=== PATIENT | male | born 1980 | race Two or more races ===

== ENCOUNTER 2016-11-05 06:58 | Emergency (ER) | payer OTHER ==
[~2016-11-05] VITALS: Ht 177.8 cm; Wt 90.0 kg
[2016-11-05 07:00] VITALS: BP 138/81; PULSE 68; RESP 16; TEMP 98.9; O2SAT 98
[2016-11-05] MEDS ORDERED: BUTA1CAP PO (07:38)
[2016-11-05] MEDS ORDERED: AUGM875T3 PO (07:38)
[2016-11-05] MEDS ORDERED: LEVO25TA4 PO (07:38)
[2016-11-05] MEDS ORDERED: ROBA750T PO (07:38)
[2016-11-05] MEDS ORDERED: PRED20 PO (07:38)
[2016-11-05] MEDS ORDERED: PRIL20TA2 PO (07:38)
[2016-11-05] MEDS ORDERED: ZOFR4TAB PO (07:38)
[2016-11-05] MEDS ORDERED: METF1000 PO (07:38)
[2016-11-05] MEDS ORDERED: SODIUM CHLOR 0.9% 1000 ML INJ 1,000 ML IV ONE (07:49)
[2016-11-05] MEDS ORDERED: PROCHLORPERAZINE INJ 10 MG/2 ML VIAL IVP ONE (08:00)
[2016-11-05] MEDS ORDERED: SODIUM CHLORIDE 0.9% FLUSH 10 ML FLUSH IVF PRN (08:00)
[2016-11-05] MEDS ORDERED: diphenhydrAMINE HCL 50 MG/ML VIAL IVP ONE (08:00)
[2016-11-05 08:14] LABS: BASOPHIL # 0.1 TH/MM3 (0-0.2); BASOPHIL % 0.5 % (0.0-2.0); EOSINOPHIL % 0.1 % (0.0-4.0); HEMATOCRIT 38.1 % (39.0-51.0); HEMO FLAGS DIFF FINAL; LYMPH % 18.3 % (9.0-44.0); LYMPHOCYTE # 2.4 TH/MM3 (1.0-4.8); MEAN CORPUSCULAR HEMOGLOBIN 26.7 PG (27.0-34.0); MEAN CORPUSCULAR HGB CONC 32.2 % (32.0-36.0); MONO % 5.6 % (0.0-8.0); NEUT % 75.5 % (16.0-70.0); PLATELET COUNT 222 TH/MM3 (150-450); RED BLOOD COUNT 4.59 MIL/MM3 (4.50-5.90); RED CELL DISTRIBUTION WIDTH 13.4 % (11.6-17.2); WHITE BLOOD COUNT 13.2 TH/MM3 (4.0-11.0)
--- NOTE | 2016-11-05 08:42 | PD ---
HPI Chief Complaint: Headache Time Seen by Provider: 07:33 Travel History International Travel<30 days: No Contact w/Intl Traveler<30days: No Traveled to known affect area: No History of Present Illness HPI The patient's 36. 3 days ago he woke up with a headache. He states that area pain involves the entire head however it's most severe in the bilateral retro- orbital distribution. He was seen in urgent care center following the onset of the pain and therefore received Benadryl, Reglan, IV fluids, Toradol and Decadron. He reports some benefit from the interventions. Evidently an MRI was performed which was normal and evidently also excluded meningitis. Patient reports no neck pain or stiffness. He reports looking from side to side is not painful. He's had no fever. He did vomit several times this morning. Urgent care facility diagnosed the headache as cluster headache. The patient denies similar prior episodes. Denies fever. PFSH Past Medical History Diabetes: Yes Patient Takes Glucophage: Yes Medical other: Yes (cluster headaches) Thyroid Disease: Yes (hypo) ?: Not Past Surgical History Surgical History: No Previous Surgery Social History Alcohol Use: Yes (3-4x monthly) Tobacco Use: No Substance Use: No Allergies-Medications (Allergen,Severity, Reaction): Coded Allergies: No Known Allergies (Unverified , 11/05/16) Reported Meds & Prescriptions Reported Meds & Active Scripts Active Oxycodone (Oxycodone HCl) 5 Mg Cap 5 Mg PO Q8H PRN Phenergan (Promethazine HCl) 25 Mg Tablet 25 Mg PO Q6H PRN Reported Prilosec (Omeprazole Magnesium) 20 Mg Tab 40 Mg PO DAILY Metformin (Metformin HCl) 1,000 Mg Tab Unknown Dose PO BIDPC With meals Levothyroxine (Levothyroxine Sodium) 25 Mcg Tab Unknown Dose PO DAILY Zofran (Ondansetron HCl) 4 Mg Tab 4 Mg PO Q12HR PRN Fioricet (Jnpzkdyfmj-Oghcgbfgtdaip-Bhcqgpzu) 50-300-40 Mg Cap 1 Cap PO TID PRN Augmentin (Amoxicillin-Clavulanate) 875-125 Mg Tab 1 Tab PO BID Robaxin (Methocarbamol) 750 Mg Tab 750 Mg PO Q8H Prednisone 20 Mg Tab 60 Mg PO DAILY Review of Systems Except as stated in HPI: all other systems reviewed are Neg General / Constitutional: No: Fever Neurologic: Positive: Headache, No: Weakness, Dizziness, Syncope, Focal Abnormalities, Coordination Problem, Tremor, Ataxia, Change in Mentation, Slurred Speech, Paresthesia, Incontinence, Seizures, Sensory Disturbance Physical Exam Narrative GENERAL: 36-year-old male well-nourished well-developed mild distress SKIN: Warm and dry. HEAD: Atraumatic. Normocephalic. EYES: Pupils equal and round. No scleral icterus. No injection or drainage. No nystagmus. EOMI with conjugate gaze. ENT: No nasal bleeding or discharge. Mucous membranes pink and moist. NECK: Neck flexion extension normal. Rotation normal. There is no spinal or paraspinal tenderness to palpation. CARDIOVASCULAR: Regular rate and rhythm. RESPIRATORY: No accessory muscle use. Clear to auscultation. Breath sounds equal bilaterally. GASTROINTESTINAL: Abdomen soft, non-tender, nondistended. Hepatic and splenic margins not palpable. MUSCULOSKELETAL: Extremities without clubbing, cyanosis, or edema. No obvious deformities. NEUROLOGICAL: Awake and alert. No obvious cranial nerve deficits. Motor grossly within normal limits. Five out of 5 muscle strength in the arms and legs. Normal speech. PSYCHIATRIC: Appropriate mood and affect; insight and judgment normal. Data Data Last Documented VS Vital Signs Date Time Temp Pulse Resp B/P (MAP) Pulse Ox O2 Delivery O2 Flow Rate FiO2 11/05/16 14:03 11/05/16 07:00 98.9 68 16 98 Room Air Vital signs reviewed blood pressure 136/81 Orders Orders Complete Blood Count With Diff (11/05/16 07:49) Basic Metabolic Panel (Bmp) (11/05/16 07:49) Ct Brain W/O Iv Contrast(Rout) (11/05/16 07:49) Ecg Monitoring (11/05/16 07:49) Iv Access Insert/Monitor (11/05/16 07:49) Oximetry (11/05/16 07:49) Sodium Chloride 0.9% Flush (Ns Flush) (11/05/16 08:00) Prochlorperazine Inj (Compazine Inj) (11/05/16 08:00) Diphenhydramine Inj (Benadryl Inj) (11/05/16 08:00) Sodium Chlor 0.9% 1000 Ml Inj (Ns 1000 M (11/05/16 07:49) Cta Brain W Iv Contrast W 3d (11/05/16 ) Iohexol 350 Inj (Omnipaque 350 Inj) (11/05/16 11:05) Hydromorphone Pf Inj (Dilaudid Pf Inj) (11/05/16 11:30) Labs Laboratory Tests Test 11/05/16 08:00 White Blood Count 13.2 TH/MM3 Red Blood Count 4.59 MIL/MM3 Hemoglobin 12.3 GM/DL Hematocrit 38.1 % Mean Corpuscular Volume 83.0 FL Mean Corpuscular Hemoglobin 26.7 PG Mean Corpuscular Hemoglobin Concent 32.2 % Red Cell Distribution Width 13.4 % Platelet Count 222 TH/MM3 Mean Platelet Volume 9.0 FL Neutrophils (%) (Auto) 75.5 % Lymphocytes (%) (Auto) 18.3 % Monocytes (%) (Auto) 5.6 % Eosinophils (%) (Auto) 0.1 % Basophils (%) (Auto) 0.5 % Neutrophils # (Auto) 10.0 TH/MM3 Lymphocytes # (Auto) 2.4 TH/MM3 Monocytes # (Auto) 0.7 TH/MM3 Eosinophils # (Auto) 0.0 TH/MM3 Basophils # (Auto) 0.1 TH/MM3 CBC Comment DIFF FINAL Differential Comment Blood Urea Nitrogen 16 MG/DL Creatinine 1.02 MG/DL Random Glucose 169 MG/DL Calcium Level 8.6 MG/DL Sodium Level 138 MEQ/L Potassium Level 4.1 MEQ/L Chloride Level 106 MEQ/L Carbon Dioxide Level 24.5 MEQ/L Anion Gap 8 MEQ/L Estimat Glomerular Filtration Rate 83 ML/MIN [facility] Medical Decision Making Medical Screen Exam Complete: Yes Emergency Medical Condition: Yes Medical Record Reviewed: Yes Differential Diagnosis Migraine, cluster headache, tension headache, aneurysm, intracranial thrombotic event, meningitis Narrative Course CBC & BMP Diagram 11/05/16 08:00 Calcium Level 8.6 Last [address] 11/05/16 0749 Signed Impressions: Service Date/Time: Saturday, November 05, 2016 10:54 - CONCLUSION: Unremarkable study except for slight sinusitis. Jaja Francis MD Head CTA 11/05/16 0000 Signed Impressions: Service Date/Time: Saturday, November 05, 2016 10:54 - CONCLUSION: Negative CTA. Exam is insensitive for aneurysm less than 2 mm and skull base aneurysms. Kaleb Link MD FACR Pain has been controlled. 0.5 mg hydromorphone gave the most benefit. The patient's explained that only "strong" medications work for the patient which in this scenario exclude butalbital, Robaxin and NSAIDs. Most certainly ethmoid sinusitis could cause severe retro-orbital cephalgia and this case may fact be the etiology. Meningitis and aneurysm are considered reasonably safely excluded. Return precautions discussed. Scripts as below. At time of reassessment the patient is resting comfortably and feels better, is alert and in no distress. The patients results and examination findings were discussed. The repeat examination is unremarkable and benign. The history, exam, diagnostic testing, and current condition do not suggest any significant pathology to warrant further testing, continued ED treatment, admission, or surgical evaluation at this point. The vital signs have been stable. The patient does not have uncontrollable pain, intractable vomiting, or other significant symptoms. The patient's condition is stable and appropriate for discharge. The patient will pursue further outpatient evaluation with a primary care physician or other designated or consulting physician as indicated in the discharge instructions. The patient expressed understanding and was agreeable with this plan. Diagnosis Primary Impression: Headache Qualified Codes: R51 - Headache Referrals: Primary Care Physician 2 days Additional Instructions: You have a choice when it comes to health care, and we are glad that you chose [facility]. Hopefully, we have met your expectations on today's visit. You are welcome to return to [facility] at any time, as we are committed to meeting the health care needs of our community. Med/Other Pt SpecificInfo: Prescription(s) given Scripts Oxycodone (Oxycodone) 5 Mg Cap 5 MG PO Q8H Y for PAIN SCALE 6 TO 10, #15 CAP 0 Refills Prov: Max Farmer MD 11/05/16 Promethazine (Phenergan) 25 Mg Tablet 25 MG PO Q6H Y for HEADACHE, #20 TAB 0 Refills Prov: Max Farmer MD 11/05/16 Disposition: 01 DISCHARGE HOME Condition: Stable Max Farmer MD Nov 05, 2016 08:42
[2016-11-05 08:58] LABS: BICARBONATE 24.5 MEQ/L (21.0-32.0); POTASSIUM 4.1 MEQ/L (3.5-5.1)
[2016-11-05] MEDS ORDERED: IOHEXOL 350 MG/ML 10 ML VIAL (for RAD DIAG) IV PUSH ONE (11:05)
[2016-11-05] MEDS ORDERED: HYDROmorphone HCL PF 1 MG/ML VIAL IV PUSH ONE (11:30)
--- NOTE | 2016-11-05 11:52 | RADRPT ---
EXAM DATE/TIME: 11/05/2016 10:54 [facility] COMPARISON: No previous studies available for comparison. INDICATIONS : Cephalgia for three days. RADIATION DOSE: 56.35 CTDIvol (mGy) MEDICAL HISTORY : Diabetes mellitus type 2. SURGICAL HISTORY : None. ENCOUNTER: Initial ACUITY: 3 days PAIN SCALE: 5/10 LOCATION: cranial TECHNIQUE: Multiple contiguous axial images were obtained of the head. Using automated exposure control and adj ustment of the mA and/or kV according to patient size, radiation dose was kept as low as reasonably a chievable to obtain optimal diagnostic quality images. DICOM format image data is available electro nically for review and comparison. FINDINGS: There is no evidence for intracranial hemorrhage, mass effect, mass lesions, edema, or extra-axial fl uid collections. The visualized bony structures appear intact. The ventricles are normal size for t he patient's age. There are no signs of acute infarction for technique. There is mild mucoperiosteal thickening within some of the eithmoid air cells. CONCLUSION: Unremarkable study except for slight sinusitis. Jaja Francis MD on November 05, 2016 at 11:48 Board Certified Radiologist. This report was verified electronically.
--- NOTE | 2016-11-05 12:02 | RADRPT ---
EXAM DATE/TIME: 11/05/2016 10:54 [facility] COMPARISON: No previous studies available for comparison. INDICATIONS : Cephalgia for three days. IV CONTRAST: 50 cc Omnipaque 350 (iohexol) IV RADIATION DOSE: 19.47 CTDIvol (mGy) MEDICAL HISTORY : Diabetes mellitus type 2. SURGICAL HISTORY : None. ENCOUNTER: Initial ACUITY: 3 days PAIN SCALE: 5/10 LOCATION: cranial TECHNIQUE: Volumetric scanning was performed using a multi-row detector CT scanner. The data was post processed with a variety of visualization algorithms including full volume maximum intensity projection, multi -planar sliding thin slab reformation, curved planar reformation, and surface rendering techniques. Using automated exposure control and adjustment of the mA and/or kV according to patient size, radiat ion dose was kept as low as reasonably achievable to obtain optimal diagnostic quality images. DICO M format image data is available electronically for review and comparison. FINDINGS: There is excellent visualization of the major intracranial arteries out to the second-order branch ve ssels. There is no evidence for aneurysm, vessel truncation or stenosis, and no evidence for vascula r malformation. CONCLUSION: Negative CTA. Exam is insensitive for aneurysm less than 2 mm and skull base aneurysms. Kaleb Link MD FACR on November 05, 2016 at 12:00 Board Certified Radiologist. This report was verified electronically.
[2016-11-05] MEDS ORDERED: OXYC1CAP PO (12:59)
[2016-11-05] MEDS ORDERED: PROM25TA10 PO (12:59)
== END 2016-11-05 14:03 | disposition home or self-care (01) ==
LOC: NEPE 06:58
DX: R51 Headache (principal); E11.9 Type 2 diabetes mellitus without complications; Z79.84 Long term (current) use of oral hypoglycemic drugs
CPT/HCPCS: 70450; 70496; 80048; 85025; 96361; 96374; 96375; 99285; J0780; J1170; J1200; J7030; Q9967